=== PATIENT | female | born 1985 | race Caucasian/White ===

== ENCOUNTER 2019-06-04 09:32 | Observation (INO) ==
[2019-06-04] MEDS ORDERED: FLU Vac QV 19-20 (6Month+)/PF 0.5 ML SYRINGE IM ONE (09:39)
[2019-06-04 10:47] LABS: Amphetamine Screen,Urine Negative ng/mL (Cutoff=1000); Barbiturate Screen,Urine Negative ng/mL (Cutoff=200); Benzodiazepines Screen,Urine Negative ng/mL (Cutoff=200); Cannabinoid Screen,Urine Negative ng/mL (Cutoff = 50); Cocaine Screen,Urine Negative ng/mL (Cutoff= 300); Opiate Screen,Urine Negative ng/mL (Cutoff=300); Phencyclidine Screen,Urine Negative ng/mL (Cutoff=25)
[2019-06-04 10:54] LABS: Bilirubin,Urine Negative (Negative); Blood,Urine Negative (Negative); Color,Urine Orange (Yellow); Glucose,Urine (UA) Normal (Normal); Ketones,Urine 15 mg/dL (Negative); Leukocyte Esterase,Urine Small (Negative); Nitrite,Urine Positive (Negative); Protein,Urine Negative (Neg-Trace); Specific Gravity,Urine 1.011 (1.010-1.025)
[2019-06-04 11:01] LABS: Clarity,Urine Slightly Hazy (Clear)
[2019-06-04 11:11] LABS: Bacteria,Urine Moderate per hpf (None-Few); RBC,Urine 0-3 per hpf (0-3); Squamous Epithelial Cell,Urine Few per lpf (None-Few)
--- NOTE | 2019-06-04 11:19 | OB/GYN Progress Note ---
Date of Encounter: 06/04/19 Time of Encounter: 11:16 - Assessment and Plan (1) 36 weeks gestation of Current Visit: Yes Status: Acute (2) Encounter for suspected PROM, with rupture of membranes not found Current Visit: Yes Status: Acute Speculum exam shows normal thick white discharge of , ferning negative (3) UTI (urinary tract infection) in in third trimester Current Visit: Yes Status: Acute UA indicates UTI. Patient with amoxicillin allergy, has taken Keflex in the past with no difficulty. Discharged home with antibiotics, labor and when to return to triage precautions. Patient verbalizes understanding and in agreement with plan Lab Results 06/04/19 06/04/19 Range/Units 10:00 10:00 Urine Color [place] A (Yellow) Urine Clarity Slightly Hazy (Clear) Urine pH 7.0 (5.0-8.0) pH Units Ur Specific [place] 1.011 (1.010-1.025) Urine Protein Negative (Neg-Trace) mg/dL Urine Glucose (UA) Normal (Normal) mg/dL Urine Ketones 15 H (Negative) mg/dL Urine Blood Negative (Negative) Urine Nitrite Positive A (Negative) Urine Bilirubin Negative (Negative) Urine Urobilinogen 2.0 H (Normal) mg/dL Ur Leukocyte Esterase Small H (Negative) Urine Microscopic RBC 0-3 (0-3) per hpf Urine Microscopic WBC 3-5 H (0-3) per hpf Ur Squamous Epith Cells Few (None-Few) per lpf Urine Bacteria Moderate H (None-Few) per hpf Ur Culture Indicated? YES A (NO) Urine Opiates Screen Negative (Tvqsaw=930) ng/mL Ur Buprenorphine Scrn Negative (Cutoff=5) ng/mL Ur Barbiturates Screen Negative (Rrwjik=671) ng/mL Ur Phencyclidine Scrn Negative (Cutoff=25) ng/mL Ur Amphetamines Screen Negative (Qcohxw=4569) ng/mL U Benzodiazepines Scrn Negative (Avbkwa=507) ng/mL Urine Cocaine Screen Negative (Cutoff= 300) ng/mL U Marijuana (THC) Screen Negative (Cutoff = 50) ng/mL Ur Drug Screen Interp See Below Subjective - Subjective Interval history: 35 with 3 weeks gestation presents to triage with complaints of leaking of fluid. Patient states since yesterday she says intermittent of leaking of fluid was damp underwear. Reports good movement, denies vaginal bleeding or contractions. Antepartum ROS: loss of fluid, movement normal, no vaginal bleeding, no contractions Objective - Vital Signs Vital Signs: Intake and Output 06/03/19 06/04/19 06/04/19 23:59 07:59 15:59 Other: Weight 96.8 kg Patient Weight 06/04/19 23:59 Weight 96.8 kg - Exam FHR: auscultation normal FHR comments: 150/moderate/positive accelerations/negative decelerations Abdomen: Present: soft, gravid Comments: Account exam shows normal thick white discharge of , negative ferning. - Labs Labs: Abnormal lab results Urine Color [place] (Yellow) A 06/04/19 10:00 Urine Ketones 15 mg/dL (Negative) H 06/04/19 10:00 Urine Nitrite Positive (Negative) A 06/04/19 10:00 Urine Urobilinogen 2.0 mg/dL (Normal) H 06/04/19 10:00 Ur Leukocyte Esterase Small (Negative) H 06/04/19 10:00 Urine Microscopic WBC 3-5 per hpf (0-3) H 06/04/19 10:00 Urine Bacteria Moderate per hpf (None-Few) H 06/04/19 10:00 Ur Culture Indicated? YES (NO) A 06/04/19 10:00
== END 2019-06-04 11:35 | disposition home or self-care (01) ==
LOC: 1NENULAB
PROVIDERS: ADMIT Obstetrics & Gynecology; ATTEND Obstetrics & Gynecology

== ENCOUNTER 2019-06-23 05:45 | Inpatient (IN) ==
[2019-06-23] MEDS ORDERED: Famotidine 20 MG/2 ML VIAL IVP PRN (05:58)
[2019-06-23] MEDS ORDERED: Naloxone 0.4 MG/ML INJ IVP PRN (05:58)
[2019-06-23] MEDS ORDERED: Metoclopramide 10 MG/2 ML VIAL IVP PRN ×2 (05:58→12:39)
[2019-06-23] MEDS ORDERED: Ringers Solution, Lactated 1,000 ML IVC SCH (06:00)
[2019-06-23] MEDS ORDERED: Ringers Solution, Lactated 1,000 ML IVC ONE (06:01)
[2019-06-23] MEDS ORDERED: Ondansetron 4 MG/2 ML VIAL IVP ONE (06:02)
[2019-06-23] MEDS ORDERED: Acetaminophen IV 1,000 MG/100 ML INFUS..BTL IVPB ONE ×2 (06:06→08:31)
[2019-06-23] MEDS ORDERED: *HR* Promethazine 25 MG/ML VIAL IVP PRN (06:06)
[2019-06-23] MEDS ORDERED: EPHEDrine 50 MG/ML VIAL ONE ×2 (06:18→08:09)
[2019-06-23] MEDS ORDERED: *HR* Phenylephrine 10 MG/ML VIAL ONE (06:18)
[2019-06-23] MEDS ORDERED: *HR* Morphine Sulfate/PF 10 MG/10 ML AMPUL ONE (06:18)
[2019-06-23] MEDS ORDERED: *HR* FentaNYL (PF) 100 MCG/2 ML VIAL ONE (06:18)
[2019-06-23] MEDS ORDERED: Ringers Solution, Lactated 1,000 ML ONE (06:19)
[2019-06-23 06:32] LABS: Basophils % 0.2 %; Eosinophils # 0.3 K/mcL (0.0-0.6); Eosinophils % 3.2 %; Hematocrit 30.5 % (35.3-44.9); Hemoglobin 9.7 g/dL (11.5-15.4); Immature Granulocytes % 1.5 % (0-4); Lymphocytes # 1.5 K/mcL (0.6-4.6); Mean Corpuscular HGB Conc 31.8 g/dL (31.6-35.5); Mean Corpuscular Hemoglobin 26.2 pg (28.0-33.3); Mean Corpuscular Volume 82.4 fL (83.0-100.0); Mean Platelet Volume 10.4 fL (9.4-12.4); Monocytes # 0.6 K/mcL (0.0-1.3); Monocytes % 6.7 %; Neutrophils # 6.6 K/mcL (1.6-8.9); Platelet Count 187 K/mcL (140-400); Red Cell Distribution Width 17.2 % (11.5-14.5); Segmented Neutrophils % 72.4 %; White Blood Count 9.1 K/mcL (4.3-11.1)
[2019-06-23 07:02] LABS: Amphetamine Screen,Urine Negative ng/mL (Cutoff=1000); Barbiturate Screen,Urine Negative ng/mL (Cutoff=200)
[2019-06-23 07:03] LABS: Benzodiazepines Screen,Urine Negative ng/mL (Cutoff=300); Cannabinoid Screen,Urine Negative ng/mL (Cutoff = 50); Cocaine Screen,Urine Negative ng/mL (Cutoff= 300); Opiate Screen,Urine Negative ng/mL (Cutoff=300); Phencyclidine Screen,Urine Negative ng/mL (Cutoff=25)
[2019-06-23] MEDS ORDERED: Clindamycin 900 MG/50 ML 900 MG/50 ML IV.SOLN IVPB ONE (07:26)
[2019-06-23] MEDS ORDERED: *HR* Oxytocin 10 UNIT/ML VIAL IM ONE (07:53)
[2019-06-23] MEDS ORDERED: Ondansetron 4 MG/2 ML VIAL ONE (07:53)
[2019-06-23] MEDS ORDERED: *HR* HYDROmorphone (PF) 1 MG/ML SYRINGE IVP PRN (08:31)
[2019-06-23] MEDS ORDERED: Ondansetron 4 MG/2 ML VIAL IVP PRN ×2 (08:31→12:39)
[2019-06-23] MEDS ORDERED: Oxytocin 20 units/ LR 1000 mL 20 UNIT/1,000 ML BAG IVC ONE (10:33)
[2019-06-23] MEDS ORDERED: Sennosides 8.6 MG TABLET PO PRN (12:39)
[2019-06-23] MEDS ORDERED: Rho Immune Globulin 1,500 UNIT SYRINGE IM ONE ×2 (12:39→14:41)
[2019-06-23] MEDS ORDERED: Oxytocin 20 units/ LR 1000 mL 20 UNIT/1,000 ML BAG IVC SCH (12:39)
[2019-06-23] MEDS ORDERED: Simethicone 80 MG TAB.CHEW PO PRN (12:39)
[2019-06-23] MEDS: BuPROPion SR (12 HR) 100 MG TABLET PO SCH ×2 (13:48→19:49)
[2019-06-23] MEDS: Prenatal Vit/FA 1 EACH TABLET PO SCH (13:49)
[2019-06-23] MEDS: lamoTRIgine 100 MG TABLET PO SCH ×2 (13:49→19:49)
[2019-06-23] MEDS: Clindamycin 900 MG/50 ML 900 MG/50 ML IV.SOLN IVPB SCH (16:03)
[2019-06-23] MEDS: Ibuprofen 600 MG TABLET PO PRN (18:38)
[2019-06-23] MEDS: *HR* OxyCODONE/APAP 5/325 TABLET PO PRN (19:51)
[2019-06-24] MEDS: Clindamycin 900 MG/50 ML 900 MG/50 ML IV.SOLN IVPB SCH ×3 (00:11→15:41)
[2019-06-24] MEDS ORDERED: Ringers Solution, Lactated 1,000 ML ONE (00:14)
[2019-06-24] MEDS: Ibuprofen 600 MG TABLET PO PRN ×2 (00:31→15:41)
[2019-06-24] MEDS: *HR* OxyCODONE/APAP 5/325 TABLET PO PRN ×3 (04:03→18:28)
[2019-06-24 06:59] LABS: Basophils % 0.1 %; Eosinophils # 0.3 K/mcL (0.0-0.6); Eosinophils % 2.4 %; Hematocrit 24.6 % (35.3-44.9); Immature Granulocytes % 1.2 % (0-4); Lymphocytes # 0.9 K/mcL (0.6-4.6); Lymphocytes % 8.2 %; Mean Corpuscular HGB Conc 30.1 g/dL (31.6-35.5); Mean Corpuscular Hemoglobin 26.1 pg (28.0-33.3); Mean Corpuscular Volume 86.6 fL (83.0-100.0); Mean Platelet Volume 10.6 fL (9.4-12.4); Monocytes # 0.8 K/mcL (0.0-1.3); Monocytes % 7.4 %; Neutrophils # 8.3 K/mcL (1.6-8.9); Platelet Count 154 K/mcL (140-400); Red Blood Count 2.84 M/mcL (3.82-4.97); Red Cell Distribution Width 17.3 % (11.5-14.5); Segmented Neutrophils % 80.7 %; White Blood Count 10.3 K/mcL (4.3-11.1)
[2019-06-24 07:25] LABS: Hemoglobin 7.4 g/dL (11.5-15.4)
[2019-06-24] MEDS: BuPROPion SR (12 HR) 100 MG TABLET PO SCH ×2 (08:37→22:11)
[2019-06-24] MEDS: lamoTRIgine 100 MG TABLET PO SCH ×2 (08:37→22:11)
[2019-06-24] MEDS: Prenatal Vit/FA 1 EACH TABLET PO SCH (08:37)
[2019-06-25] MEDS: Ibuprofen 600 MG TABLET PO PRN ×3 (01:13→21:03)
[2019-06-25] MEDS: *HR* OxyCODONE/APAP 5/325 TABLET PO PRN ×2 (07:54→17:29)
[2019-06-25] MEDS: BuPROPion SR (12 HR) 100 MG TABLET PO SCH ×2 (07:55→21:04)
[2019-06-25] MEDS: lamoTRIgine 100 MG TABLET PO SCH ×2 (07:55→21:03)
[2019-06-25] MEDS: Prenatal Vit/FA 1 EACH TABLET PO SCH (07:55)
[2019-06-25] MEDS ORDERED: 0.9 % Sodium Chloride 1,000 ML IVC SCH (10:30)
[2019-06-25 20:32] LABS: Basophils % 0.4 %; Eosinophils # 0.3 K/mcL (0.0-0.6); Eosinophils % 3.2 %; Hematocrit 29.2 % (35.3-44.9); Hemoglobin 9.2 g/dL (11.5-15.4); Immature Granulocytes % 3.2 % (0-4); Lymphocytes % 9.6 %; Mean Corpuscular HGB Conc 31.5 g/dL (31.6-35.5); Mean Corpuscular Hemoglobin 26.6 pg (28.0-33.3); Mean Corpuscular Volume 84.4 fL (83.0-100.0); Mean Platelet Volume 10.2 fL (9.4-12.4); Monocytes # 0.9 K/mcL (0.0-1.3); Monocytes % 8.6 %; Neutrophils # 7.7 K/mcL (1.6-8.9); Nucleated Red Blood Cells 0.4 /100 WBC (0); Platelet Count 188 K/mcL (140-400); Red Blood Count 3.46 M/mcL (3.82-4.97); Red Cell Distribution Width 16.9 % (11.5-14.5); White Blood Count 10.3 K/mcL (4.3-11.1)
[2019-06-25 21:27] VITALS: BP 120/76
== END 2019-06-25 21:45 | disposition home or self-care (01) | DRG 787 ==
LOC: 1NENULAB 05:55 → 1NENUOBS 12:17
PROVIDERS: ADMIT Obstetrics & Gynecology; ATTEND Obstetrics & Gynecology